=== PATIENT | female | born 1990 | race Caucasian/White ===

== ENCOUNTER 2017-05-17 19:41 | Outpatient (CLI) | payer BC ==
[~2017-05-17] VITALS: Ht 160 cm; Wt 90.7 kg
[~2017-05-17 19:41] MED LIST: ALBU8.5H IH; LAMOT150PT GT; VERA120C9 PO
[2017-05-17] MEDS ORDERED: DLR(*) 1000 ML BAG 1,000 ML IV PRN (19:48)
[2017-05-17 20:30] VITALS: BP 127/73; Ht 160 cm; Wt 90.7 kg
[2017-05-17] MEDS: LR(*) 1000 ML BAG 1,000 ML IV PRN ×2 (20:30→21:25)
[2017-05-17] MEDS ORDERED: ONDANSETRON 4 MG/2 ML VIAL IVP PRN (20:35)
[2017-05-17] MEDS ORDERED: APAP/HYDROCODONE 325/10 TAB PO ONE (21:10)
[2017-05-17 21:50] LABS: PLATELET COUNT, AUTOMATED 227 K/uL (150-450)
[2017-05-17] MEDS ORDERED: APAP/HYDROCODONE 325/5 TAB PO PRN (22:30)
== END 2017-05-18 00:13 | disposition home or self-care (01) ==
LOC: OB 19:41 → L&D 19:41 → OB 19:41 → UNDOADMOB 19:41 → UNDODISOB 05-18 00:13 → L&D 05-18 00:13 → EDSTATUS 05-18 10:38
PROVIDERS: ATTEND Student in an Organized Health Care Education/Training Program
DX: O26.892 Other specified pregnancy related conditions, second trimester (principal); Z3A.24 24 weeks gestation of pregnancy; R10.9 Unspecified abdominal pain
CPT/HCPCS: 36415; 59025; 81001; 85025; 87088; 99213; J2405; J7120; 82040; 82247; 82310; 82374; 82435; 82565; 82947; 84075; 84132; 84155; 84295; 84450; 84460; 84520

== ENCOUNTER 2017-05-21 12:12 | Outpatient (CLI) | payer BC ==
[~2017-05-21] VITALS: Ht 160 cm; Wt 95.3 kg
[2017-05-21 12:20] VITALS: BP 121/82; Ht 160 cm; Wt 95.3 kg
[2017-05-21 12:48] LABS: PLATELET COUNT, AUTOMATED 242 K/uL (150-450)
[2017-05-21] MEDS ORDERED: HYDROmorphone HCL 2 MG/ML SDV IVP ONE (13:05)
--- NOTE | 2017-05-21 13:05 | History & Physical ---
History of Present Illness Age of Patient: 27 : 1 Para or TPAL: 0 Estimated Gestational Age: 27 Chief Complaint r-sided abdominal History of Present Illness 27yo at 25 weeks, ALEXIS 09/04/17, presents with R-sided abdominal pain. Pain started 5 days ago, severe 11/12, was seen in ED, noted to have elevated WBC, 18. Pain is sharp, radiates to RLQ. No nausea/emesis, no other symptoms. Normal movement, denies contractions, denies PVB or LOF. Pt reports pain resolved when seen in ED, now intermittent and worsening today. Patient reports worse after eating in last two days. History Group B Strep Screen: Unknown Past Medical History: h/o nephrolithiasis Allergies: Coded Allergies: codeine (Verified Allergy, Intermediate, 11/24/16) Social History: no T/E/D Med Rec Home Meds Reported Medications Acetaminophen (TYLENOL) 325 Mg Tablet, 650 MG PO Q4-6H Y for PAIN, TAB 05/21/17 Vits W-Ca,Fe,Fa(<1MG) ( VITAMINS) 1 Each Tablet, 1 EACH PO DAILY, TAB 05/21/17 Discontinued Reported Medications Albuterol Sulfate 90 Mcg/Act (PROAIR HFA 90 MCG/ACT) 8.5 Gm Hfa.aer.ad, 1-2 PUFF IH 3-4XD, INHALER 11/24/16 Verapamil Hcl (VERAPAMIL ER) 120 Mg Cap24h.pel, 120 MG PO QDAY 11/24/16 Lamotrigine (LAMICTAL) 150 Mg Tablet, 150 MG GT QDAY 11/24/16 Review of Systems Constitutional: No Fever, No Weight Loss, No Weight Gain, No Chills, No Night Sweats, No Other Neurological: No Syncope, No Confusion, No Weakness, No Dizziness, No Slurred Speech, No Other Eyes: No Vision Change, No Loss of Vision, No Photophobia, No Other ENT: No Hearing Loss, No Sinus Congestion, No Sore Throat, No Ear Ache, No Tinnitus, No Other Cardiovascular: No Chest Pain, No Palpitations, No Orthostatic Hypotension, No Other Respiratory: No Shortness of Breath, No Cough, No Wheezing, No Other Gastrointestinal: Abdominal Pain (R-sided) Genitourinary: No Dysuria, No Hematuria, No Urinary Incontinence, No Other Musculoskeletal: No Pain, No Sprain, No Strain, No Impaired Mobility, No Other Psychiatric: No Depression, No Anxiety, No Other Exam General Exam Vital Signs Vital Signs Date Time Temp Pulse Resp B/P (MAP) Pulse Ox O2 Delivery O2 Flow Rate FiO2 05/21/17 12:20 99.3 94 18 121/82 (95) 96 Room Air afebrile VSS General Apperance: Alert/Awake/No Acute Distress Neuro: No Gross deficits Eyes: Normal Extraocular Movement & Vison Cardiovascular: Regular Rate and Rhythm Respiratory: No Respiratory Distress Abdomen: Gravid - Tender (no fundal tenderness), RUQ Non-Tender Extremities: No Cyanosis,Clubbing or Edema Integumentary: Skin Intact without Lesions or Rash Psychological: Alert & Oriented X3, Appropriate Mood & Affect Fetus Feeling Movement?: Yes Heart Tones: 140 Medical Decision Making Data Points Result Diagram: 05/21/17 1240 05/21/17 1240 UA negative for blood, nitrates Imaging Ultrasound/Imaging RUQ ultrasound unremarkable, no e/o cholecystitis or gall stones Renal Ultrasound negative for stones, mild R hydronephrosis (physiologic finding in ) Pre-Admit Course Medical Record Review: Yes VTE Prophylasis: Adult Deep Vein Thrombosis/Pulmonary: No Pharmacological Contraindicati: Surgical Contraindication Mechanical Contraindications: Pt at Low Risk for VTE Assessment and Plan Problems: (1) Abdominal pain affecting , antepartum Status: Acute Assessment & Plan: 27yo at 25 weeks with acute, intermittent R-sided pain. Initially radiating to groin, 5 days ago, now worse after eating. Mildly elevated WBC at visit to ED on Wednesday. UCx contaminated at that time. status reassuring, no E/O distress. Will repeat CBC, CMP, check renal ultrasound for stones as well as RUQ ultrasound given sx worse after eating. Will treat pain with 2mg dilaudid x 1. After several hours of monitoring pain significantly improved. All studies normal, with WBC significantly decreased from visit Wednesday. testing remained reassuring. Will allow discharge home with plans for f/u in our office early next week, revisit if pain returns at the level it did today. CHIKIS LUO MD May 21, 2017 13:05
[2017-05-21] MEDS ORDERED: LR(*) 1000 ML BAG 1,000 ML IV PRN (13:08)
[2017-05-21] MEDS ORDERED: DLR(*) 1000 ML BAG 1,000 ML IV SCH (13:08)
[2017-05-21] MEDS ORDERED: METOCLOPRAMIDE 10 MG/2 ML SDV IVP PRN (13:10)
--- NOTE | 2017-05-21 15:12 | RADIOLOGY IMAGING REPORT ---
FACILITY: [facility] - [place] PATIENT NAME: Constanza Bansal : 1990 MR: [id number] V: [id number] EXAM DATE: ORDERING PHYSICIAN: CHIKIS LUO TECHNOLOGIST: Location: [facility] - [place] Patient: Constanza Bansal : 1990 Visit/Account:[id number] Date of Sevice: 05/21/2017 EXAMINATION: Limited right upper quadrant ultrasound Additional Pertinent history: Right upper quadrant pain. Patient at 24 weeks and 6 days. COMPARISON STUDIES: None. FINDINGS: Gallbladder: Tiny bit of sludge/debris in the gallbladder without stones, wall thickening or perichol ecystic fluid. Negative ultrasound Duncan sign. Liver: negative Common duct: normal 2.6 mm. Pancreas: normal / visualized aspects normal / obscured Right kidney: Mild right hydronephrosis without cause identified. No other focal abnormality. Proximal IVC/Aorta: negative heart rate is 135 bpm. IMPRESSION: 1. Mild right hydronephrosis without cause identified. 2. The gallbladder shows minimal sludge/debris without other focal normality. Report Dictated By: Negro Chappell at 05/21/2017 3:03 PM Report E-Signed By: Negro Chappell at 05/21/2017 3:07 PM WSN:[id number]
--- NOTE | 2017-05-21 15:15 | RADIOLOGY IMAGING REPORT ---
FACILITY: [facility] PATIENT NAME: Constanza Bansal : 1990 MR: [id number] V: [id number] EXAM DATE: ORDERING PHYSICIAN: CHIKIS LUO TECHNOLOGIST: Location: [facility] - [place] Patient: Constanza Bansal : 1990 Visit/Account:[id number] Date of Sevice: 05/21/2017 Renal ultrasound Indication: Flank pain. Patient at 24 weeks and 6 days. Comparison: None available Findings: Right kidney measures 11.3 x 4.7 x 6.3 cm in cc, AP, and transverse dimensions respectively. Left kidney measures 10.8 x 5.3 x 5.2 cm in cc, AP, and transverse dimensions respectively. There is normal echogenicity of the bilateral kidneys. There is mild right hydronephrosis which is unresolved with voiding. There is no renal stones identif ied. Left kidney shows no hydronephrosis or stones. No discrete renal lesions. Blood flow both kidney s appears symmetric and normal. Bilateral ureteral jets were seen. Urinary bladder imaging was negative and there is minimal post-void residual of 13 mL. Visualized abdominal aorta and IVC are unremarkable. IMPRESSION: 1. Mild right hydronephrosis. This appears to be secondary to the as the right ureteral jet is present. No stones are identified. 2. Minimal postvoid residual in the urinary bladder. Report Dictated By: Negro Chappell at 05/21/2017 3:08 PM Report E-Signed By: Negro Chappell at 05/21/2017 3:11 PM WSN:[id number]
[2017-05-21] MEDS ORDERED: ACET-1966 PO (16:50)
[2017-05-21] MEDS ORDERED: PREN-127 PO (16:50)
--- NOTE | 2017-05-21 17:58 | OB/GYN Discharge Summary ---
Discharge Summary Reason for Hosp/Final Diag: (1) Abdominal pain affecting , antepartum Status: Acute Lates Vital Signs Vital Signs Date Time Temp Pulse Resp B/P (MAP) Pulse Ox O2 Delivery O2 Flow Rate FiO2 05/21/17 12:20 99.3 94 18 121/82 (95) 96 Room Air Weight (Pounds): 210 Result Diagram: 05/21/17 1240 05/21/17 1240 Condition: Improved Discharge: Home Home Meds Reported Medications Acetaminophen (TYLENOL) 325 Mg Tablet, 650 MG PO Q4-6H Y for PAIN, TAB 05/21/17 Vits W-Ca,Fe,Fa(<1MG) ( VITAMINS) 1 Each Tablet, 1 EACH PO DAILY, TAB 05/21/17 Discontinued Reported Medications Albuterol Sulfate 90 Mcg/Act (PROAIR HFA 90 MCG/ACT) 8.5 Gm Hfa.aer.ad, 1-2 PUFF IH 3-4XD, INHALER 11/24/16 Verapamil Hcl (VERAPAMIL ER) 120 Mg Cap24h.pel, 120 MG PO QDAY 11/24/16 Lamotrigine (LAMICTAL) 150 Mg Tablet, 150 MG GT QDAY 11/24/16 [facility] [phone] Follow up in: 3-4 days Discharge Diet: As Tolerates Discharge Activity: As Tolerates CHIKIS LUO MD May 21, 2017 17:58
== END 2017-05-21 18:15 | disposition home or self-care (01) ==
LOC: UNDOADMOB 12:12 → OB 12:12 → L&D 12:12 → OB 12:12 → L&D 18:15 → UNDODISOB 18:15 → EDSTATUS 05-24 10:48
PROVIDERS: ATTEND Obstetrics & Gynecology
DX: O26.892 Other specified pregnancy related conditions, second trimester (principal); Z3A.25 25 weeks gestation of pregnancy
CPT/HCPCS: 36415; 76705; 81001; 85025; 99213; J1170; J7120; 82040; 82247; 82310; 82374; 82435; 82565; 82947; 84075; 84132; 84155; 84295; 84450; 84460; 84520; G0378; G0379

== ENCOUNTER 2017-05-28 11:04 | Observation (INO) | payer BC ==
[~2017-05-28] VITALS: Ht 160 cm; Wt 95.3 kg
[~2017-05-28 11:04] MED LIST changes: +ACET-1966 PO; +PREN-127 PO
[2017-05-28] MEDS ORDERED: APAP/HYDROCODONE 325/5 TAB PO PRN ×2 (11:20→19:00)
[2017-05-28 11:30] VITALS: BP 125/72; Ht 160 cm; Wt 95.3 kg
[2017-05-28 11:38] LABS: PLATELET COUNT, AUTOMATED 223 K/uL (150-450)
--- NOTE | 2017-05-28 12:34 | RADIOLOGY IMAGING REPORT ---
FACILITY: [facility] - [place] PATIENT NAME: Constanza Bansal : 1990 MR: [id number] V: [id number] EXAM DATE: ORDERING PHYSICIAN: DAHIANA ALMANZA TECHNOLOGIST: Location: [facility] Patient: Constanza Bansal : 1990 Visit/Account:[id number] Date of Sevice: 05/28/2017 EXAMINATION: CT ABDOMEN AND PELVIS WITHOUT CONTRAST COMPARISON: None. HISTORY: 26 weeks . Right flank pain. PROCEDURE: Multiplanar noncontrast CT of the abdomen and pelvis. One of the following dose optimizati on techniques was utilized in the performance of this exam: Automated exposure control; adjustment of the mA and/or kV according to the patient's size; or use of an iterative reconstruction technique. Specific details can be referenced in the facility's radiology CT exam operational policy. FINDINGS: Evaluation of the solid and viscus parenchymal organs and vascular structures is limited wi thout the benefit of IV contrast. Visualized thorax: Negative. Liver: Noncontrast imaging of the visualized liver is within normal limits. Gallbladder and biliary system: Negative Spleen: Spleen size is normal. Pancreas: Noncontrast imaging of the pancreas is within normal limits. Adrenal glands: Negative. Kidneys and bladder: Mild right-sided hydronephrosis and parenchymal edema due to a 3 mm stone in the distal ureter approximately 3 cm from the ureterovesical junction. No other radiopaque urolithiasis is identified. Vessels: Within normal limits. Bowel and mesentery: Stomach is within normal limits. No small bowel obstruction. Appendix is unrem arkable. Small amount of stool within the colon. No focal region of bowel or mesenteric inflammatio n. Pelvic organs: Intrauterine gestation in cephalic lie. Fundal placenta. Lymph nodes: No adenopathy. Free air/free fluid: None. Abdominal wall and osseous structures: Negative. IMPRESSION: 1. Mild right-sided obstructive uropathy due to a 3 mm stone in the distal ureter approximately 3 cm from the ureterovesical junction. 2. Intrauterine gestation. Report Dictated By: Josh Clay MD at 05/28/2017 12:22 PM Report E-Signed By: Josh Clay MD at 05/28/2017 12:30 PM WSN:[id number]
[2017-05-28] MEDS ORDERED: LR(*) 1000 ML BAG 1,000 ML IV SCH ×2 (12:35→20:00)
[2017-05-28] MEDS ORDERED: LIDOCAINE/SOD BICARB 8.4% SYR ONE (12:44)
[2017-05-28] MEDS: MORPHINE 2 MG/ML SYR IVP PRN ×3 (12:59→16:16)
--- NOTE | 2017-05-28 15:02 | History & Physical ---
History of Present Illness Age of Patient: 27 : 2 Para or TPAL: 0010 EDC per LMP: Sep 04, 2017 EDC per U/S: September 02, 2017 Estimated Gestational Age: 25.6 Chief Complaint Abdominal Pain History of Present Illness Pt is a 27 y/o @ 25-6/7 weeks gestation who present to L&D with a chief complaint of abdominal pain. Pt reports that she has been having pain now for 2 -3 weeks. Pt's pain will start and be constant for many hours with little to zero relief. Pt reports that last week the pain happened and lasted for multiple days. Reports getting an U/S that was negative and shortly thereafter the pain was gone. Pt reports that the pain started again this morning and has been constant in general. Pt reports pain 7-10. Did take tramadol with no relief of symptoms. Reports good movement. No vaginal bleeding. History Patient's Blood Type: O Positive Rubella Status: Immune Group B Strep Screen: Unknown Past Medical History: Non contributory Allergies: Coded Allergies: codeine (Verified Allergy, Intermediate, 11/24/16) Social History: no T/E/D Med Rec Home Meds Reported Medications Acetaminophen (TYLENOL) 325 Mg Tablet, 650 MG PO Q4-6H Y for PAIN, TAB 05/21/17 Vits W-Ca,Fe,Fa(<1MG) ( VITAMINS) 1 Each Tablet, 1 EACH PO DAILY, TAB 05/21/17 Discontinued Reported Medications Albuterol Sulfate 90 Mcg/Act (PROAIR HFA 90 MCG/ACT) 8.5 Gm Hfa.aer.ad, 1-2 PUFF IH 3-4XD, INHALER 11/24/16 Verapamil Hcl (VERAPAMIL ER) 120 Mg Cap24h.pel, 120 MG PO QDAY 11/24/16 Lamotrigine (LAMICTAL) 150 Mg Tablet, 150 MG GT QDAY 11/24/16 Review of Systems All Systems Reviewed/Normal: Yes, Except as Noted Constitutional: No Fever, No Weight Loss, No Weight Gain, No Chills, No Night Sweats, No Other Neurological: No Syncope, No Confusion, No Weakness, No Dizziness, No Slurred Speech, No Other Eyes: No Vision Change, No Loss of Vision, No Photophobia, No Other ENT: No Hearing Loss, No Sinus Congestion, No Sore Throat, No Ear Ache, No Tinnitus, No Other Cardiovascular: No Chest Pain, No Palpitations, No Orthostatic Hypotension, No Other Respiratory: No Shortness of Breath, No Cough, No Wheezing, No Other Gastrointestinal: Abdominal Pain Genitourinary: No Dysuria, No Hematuria, No Urinary Incontinence, No Other Musculoskeletal: No Pain, No Sprain, No Strain, No Impaired Mobility, No Other Psychiatric: No Depression, No Anxiety, No Other Exam General Exam General Apperance: Alert/Awake/No Acute Distress Eyes: Normal Extraocular Movement & Vison, PERRLA ENT: Normal Cardiovascular: Regular Rate and Rhythm Respiratory: No Respiratory Distress, Clear to Auscultation Abdomen: Soft, Non-Tender, Non-Distended, Gravid - Non-Tender Integumentary: No Skin Intact without Lesions or Rash, No Jaundice, No Pallor, No Cyanosis, No Incision, No Laceration, No Other Psychological: Alert & Oriented X3, Appropriate Mood & Affect Medical Decision Making Data Points Result Diagram: 05/28/17 1132 Pre-Admit Course Medical Record Review: Yes VTE Prophylasis: Adult Deep Vein Thrombosis/Pulmonary: No 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 Dr. Henry consulted and will be in to see the patient. DAHIANA ALMANZA DO May 28, 2017 15:02
[2017-05-28] MEDS ORDERED: NORMOSOL R SOLN(*) 1000 ML BAG 1,000 ML IV PRN (15:16)
[2017-05-28] MEDS ORDERED: fentaNYL CITR 100 MCG/2 ML AMP ONE ×2 (16:01→17:08)
[2017-05-28] MEDS ORDERED: LIDOCAINE MPF 1% 5 ML VIAL ONE ×2 (16:02→16:41)
[2017-05-28] MEDS ORDERED: PROPOFOL EMUL(*) 10MG/ML 20 ML 80 ML ONE (16:02)
[2017-05-28] MEDS ORDERED: ONDANSETRON 4 MG/2 ML VIAL ONE (16:02)
[2017-05-28] MEDS ORDERED: DEXAMETHASONE SOD 4 MG/ML VIAL ONE (16:05)
[2017-05-28] MEDS ORDERED: cefTRIAXone(*) 1 GM VIAL 1 GM in NS(*) 0.9% 100 ML ADDVANT BAG 100 ML IVPB ONE (16:30)
[2017-05-28] MEDS ORDERED: TRAM-420 PO (16:53)
[2017-05-28] MEDS ORDERED: IOPAMIDOL-200 50 ML VIAL IS ONE (16:55)
[2017-05-28] MEDS ORDERED: KETOROLAC 15 MG/ML VIAL ONE (18:00)
--- NOTE | 2017-05-28 18:21 | CONSULTATION ---
EVENT DATE: May 28, 2017 ATTENDING PHYSICIAN Felipe Herndon DO CONSULTING PHYSICIAN Ernesto Henry MD REASON FOR CONSULTATION Right-sided pain. HISTORY OF PRESENT ILLNESS This is a 27-year-old white female, 26 weeks , who I was asked to see by Dr. Felipe Herndon, OB-CATALYST OPERATOR physician, caring for the patient today. Patient has a history of right-sided pain for a little over a week. CT IVP today shows a right distal ureteral stone. Patient requested consultation as referenced by Dr. Herndon. Patient was interviewed in the early p.m. today, and is agreeable to further evaluation and therapy. DIAGNOSIS Right ureterolithiasis with associated severe right ureteral colic, nausea and vomiting. RECOMMENDATIONS 1. Cystourethroscopy. 2. Manipulation of right ureteral stone. 3. Possible right ureteral stent placement. Thank you for letting me share in the care of your patient. [place]
[2017-05-28] MEDS ORDERED: LR(*) 1000 ML BAG 1,000 ML IV PRN (19:00)
[2017-05-28] MEDS ORDERED: FAMOTIDINE 20 MG TAB PO PRN (19:00)
[2017-05-28] MEDS ORDERED: ONDANSETRON 4 MG/2 ML VIAL IVP PRN (19:00)
[2017-05-28 19:30] VITALS: BP 120/79
--- NOTE | 2017-05-28 20:48 | OB/GYN Progress Note ---
OB Subjective Progress Notes Subjective Reports significant improvement in pain post operatively. Denies any vaginal bleeding. + movement. GI: NEG Nausea, NEG Vomiting, NEG Flatus, NEG Bowel Movement : Voiding Well Pain: Mild, Tolerating PO Pain Meds Neurological: No Headache, No Other Eyes: No Visual Disturbances OB Objective Physical Exam Vital Signs Date Time Temp Pulse Resp B/P (MAP) Pulse Ox O2 Delivery O2 Flow Rate FiO2 05/28/17 19:30 98.2 93 20 120/79 (93) 95 Room Air Intake and Output 05/29/17 07:00 Intake Total 1526 ml Output Total 275 ml Balance 1251 ml Intake Oral 100 ml IV Total 1426 ml Output Urine Total 275 ml Emesis 0 ml # Voids 2 # Bowel Movements 0 General Appearance: Alert/Awake/No Acute Distress Eyes: Normal Extraocular Movement & Vison, PERRLA ENT: Normal Respiratory: No Respiratory Distress, Clear to Auscultation Abdomen: Soft, Non-Tender, Non-Distended, Non-Tender : Normal Musculoskeletal: No Weakness/Pain Integumentary: No Skin Intact without Lesions or Rash, No Jaundice, No Pallor, No Cyanosis, No Incision, No Laceration, No Other Psychological: Alert & Oriented X3, Appropriate Mood & Affect Result Diagram: 05/28/17 1132 Assessment and Plan BUYER 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 Henry. Pt reports significant improvement in pain. Will monitor overnight. NST q shift. Discharge home tomorrow with pain medications. Follow up as needed with Dr. Henry. DAHIANA ALMANZA DO May 28, 2017 20:48
[2017-05-28] MEDS: FAMOTIDINE 20 MG TAB PO SCH (21:00)
[2017-05-28] MEDS ORDERED: ZOLPIDEM TARTRATE 5 MG TAB PO PRN (21:00)
[2017-05-28 21:20] VITALS: BP 112/75
[2017-05-28 23:15] VITALS: BP 114/70
[2017-05-29 03:13] VITALS: BP 101/68
[2017-05-29] MEDS ORDERED: LOR5/325 PO (06:29)
--- NOTE | 2017-05-29 06:36 | OB/GYN Discharge Summary ---
Discharge Summary Reason for Hosp/Final Diag: (1) 25 weeks gestation of (2) Abdominal pain affecting Hospital Course & Plan: Pt presented for abdominal pain and was noted to have significant abdominal pain with initial presentation. Pt has had work up for a possible kidney stone. Underwent CT of abdomen and pelvis with 3 mm in the right Ureteral Vesical Junction. Dr. Henry was consulted and took the patient to the OR for stone retrieval/possible stenting. Underwent procedure with out any complications (see procedure note for details of procedure). Pt remained in the hospital for 1 day post operatively for pain control. Pain was controlled with Smyer 5. Pt discharged home with follow up with Dr. Henry and WC. Lates Vital Signs Vital Signs Date Time Temp Pulse Resp B/P (MAP) Pulse Ox O2 Delivery O2 Flow Rate FiO2 05/29/17 03:13 97.0 75 16 101/68 (79) 97 Nasal Cannula 0.5 Weight (Pounds): 210 Result Diagram: 05/28/17 1132 Condition: Improved Discharge: Home Home Meds Active Scripts Hydrocodone Bit/Acetaminophen (HYDROCODON-ACETAMINOPHEN 5-325) 1 Each Tablet, 1- 2 EACH PO Q4H Y for PAIN, #20 TAB 0 Refills Prov:DAHIANA ALMANZA DO 05/29/17 Reported Medications Tramadol Hcl (TRAMADOL HCL) 50 Mg Tablet, MG PO Q4-6H Y for PAIN, TAB 05/28/17 Acetaminophen (TYLENOL) 325 Mg Tablet, 650 MG PO Q4-6H Y for PAIN, TAB 05/21/17 Vits W-Ca,Fe,Fa(<1MG) ( VITAMINS) 1 Each Tablet, 1 EACH PO DAILY, TAB 05/21/17 [facility] [phone] Follow up in: 2 wks PO Discharge Diet: As Tolerates, Resume Prior Admit Diet, Increase Fluid Intake Discharge Activity: As Tolerates DAHIANA ALMANZA DO May 29, 2017 06:36
--- NOTE | 2017-05-29 06:51 | OB/GYN Progress Note ---
OB Subjective Progress Notes Subjective Doing much better. Reports some discomfort overnight but easily controlled with PO pain medications. Still using screen for urine with multiple crystals noted. Pt reports good movement. No vaginal bleeding. No contractions. GI: NEG Nausea, NEG Vomiting, NEG Flatus, NEG Bowel Movement : Voiding Well Pain: Mild Neurological: No Headache, No Other Eyes: No Visual Disturbances OB Objective Physical Exam Vital Signs Date Time Temp Pulse Resp B/P (MAP) Pulse Ox O2 Delivery O2 Flow Rate FiO2 05/29/17 03:13 97.0 75 16 101/68 (79) 97 Nasal Cannula 0.5 General Appearance: Alert/Awake/No Acute Distress Eyes: Normal Extraocular Movement & Vison, PERRLA ENT: Normal Neck: No Masses Cardiovascular: Normal Rhythm & Peripheral Pulses, Regular Rate and Rhythm Respiratory: No Respiratory Distress, Clear to Auscultation Abdomen: Soft, Non-Tender, Non-Distended, Non-Tender : Normal Musculoskeletal: No Weakness/Pain Integumentary: No Skin Intact without Lesions or Rash, No Jaundice, No Pallor, No Cyanosis, No Incision, No Laceration, No Other Psychological: Alert & Oriented X3, Appropriate Mood & Affect Result Diagram: 05/28/17 1132 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 Will plan for discharge home today. Follow up with Dr. Henry and W. DAHIANA ALMANZA DO May 29, 2017 06:51
[2017-05-29 08:25] VITALS: BP 113/67
[2017-05-29] MEDS: FAMOTIDINE 20 MG TAB PO SCH (09:00)
--- NOTE | 2017-05-29 13:58 | OPERATIVE REPORT 1 ---
EVENT DATE: May 28, 2017 SURGEON: Ernesto Henry MD ANESTHESIOLOGIST: Bartolo Leon MD ANESTHESIA: General anesthetic. PREOPERATIVE DIAGNOSES 1. Right ureterolithiasis with associated severe right ureterorenal colic. 2. Nausea and vomiting. POSTOPERATIVE DIAGNOSES 1. Right ureterolithiasis with associated severe right ureterorenal colic. 2. Nausea and vomiting. PROCEDURES PERFORMED 1. Cystourethroscopy. 2. Manipulation of right ureteral stone. 3. Catheterization of right ureter. DESCRIPTION OF PROCEDURE Under general anesthetic, the patient was prepped and draped in the standard lithotomy position. The 21 panendoscope was admitted through the urethra into the bladder. No stones were visible in the bladder. The helical extractor was passed up the right collecting system well beyond the 2 to 3 cm estimated as to location of the stone in the ureter. On the first passage with the basket open, the stone was engaged and delivered without any difficulty. There was minimal bleeding following the extraction. The stone was retrieved times two. It fragmented in one smaller particle off of the big stone. The 10 cone-tipped catheter passed easily up and down the right ureter. The bladder was drained. The scope was withdrawn. The patient tolerated the procedure satisfactorily and returned to the recovery room in satisfactory condition. This is a 26-year-old white female, 1, at approximately 26 weeks of . Options were discussed with the patient pretreatment. The patient has been having pain, ureterorenal colic, and intermittent nausea and vomiting for over a week. She was seen in the Emergency Room approximately a week ago. Those stones have been retrieved. CT IVP today showed a right distal ureteral stone. I was contacted by Dr. Herndon, PRE K SPECIAL EDUCATION TEACHER physician, and the patient requested consultation and treatment. That has been accomplished. See operative note for details. The patient will be ready for discharge home hopefully in the a.m. if all is going well. She is to force fluids, 12 glasses of water per day. Activities are as tolerated. She is to strain all of her urine. She is sent home with strainers. She will be discharged on a low-dose antibiotic, analgesic, and Pepcid therapy. She is to follow up with her local physician and urologist in [place]. We will check with the patient as to whether she wants to take the stone with her for possible analysis at her home site. MANHATTAN PSYCHIATRIC CENTERAngelique
[2017-05-29] MEDS ORDERED: FAMOTIDINE 20 MG TAB PO ONE (15:30)
== END 2017-05-29 06:29 | disposition home or self-care (01) ==
LOC: OB 11:04
PROVIDERS: ADMIT Student in an Organized Health Care Education/Training Program; ATTEND Student in an Organized Health Care Education/Training Program
DX: N20.2 Calculus of kidney with calculus of ureter (principal); R11.2 Nausea with vomiting, unspecified
CPT/HCPCS: 36415; 52320; 52332; 74176; 81001; 82365; 85025; 87088; 88300; C1758; G0378; G0379; J0696; J1100; J1885; J2001; J2270; J2405; J2704; J3010; J7050; J7120; Q9966

== ENCOUNTER 2017-08-31 23:41 | Inpatient (IN) | payer BC ==
[~2017-08-31] VITALS: Ht 160 cm; Wt 102.1 kg
[~2017-08-31 23:41] MED LIST changes: +LOR5/325 PO; +TRAM-420 PO
[2017-08-31] MEDS ORDERED: FLUSH 10 ML SYR IVP PRN (23:45)
[2017-09-01 01:59] LABS: PLATELET COUNT, AUTOMATED 144 K/uL (150-450)
[2017-09-01 07:00] VITALS: BP 143/87; Ht 160 cm; Wt 102.1 kg
[2017-09-01] MEDS ORDERED: CALC-521 PO (08:39)
[2017-09-01] MEDS ORDERED: FLUSH 10 ML SYR IVP PRN (10:05)
[2017-09-01] MEDS ORDERED: fentaNYL CITR 100 MCG/2 ML AMP IVP PRN (10:05)
[2017-09-01] MEDS ORDERED: METOCLOPRAMIDE 10 MG/2 ML SDV IVP PRN (10:05)
[2017-09-01] MEDS ORDERED: OXYTOCIN 30 UNIT/D5LR 500 ML 500 ML IV PRN (10:05)
[2017-09-01] MEDS ORDERED: FAMOTIDINE(*) 20MG/50ML PREMIX 50 ML IVPB PRN ×2 (10:05→21:25)
[2017-09-01] MEDS ORDERED: LIDOCAINE/SOD BICARB 8.4% SYR SC PRN (10:05)
[2017-09-01] MEDS ORDERED: LIDOCAINE 1% LOCAL 300 MG/30ML INJ PRN (10:05)
[2017-09-01] MEDS ORDERED: TERBUTALINE SULF 1 MG/ML VIAL SUBQ PRN (10:05)
[2017-09-01] MEDS ORDERED: FENTANYL/ROPIVACAINE 100 ML BAG EPI PRN (10:15)
[2017-09-01] MEDS ORDERED: LIDO/EPI 2% MPF 1:200,000 20ML EPI PRN (10:15)
[2017-09-01] MEDS ORDERED: LIDOCAINE/PF 2% 200MG/10ML AMP 200 MG/10 ML AMPUL EPI PRN (10:15)
[2017-09-01] MEDS ORDERED: BUPIVACAINE 0.25% MPF INJ EPI PRN (10:15)
[2017-09-01] MEDS ORDERED: fentaNYL CITR 100 MCG/2 ML AMP IT PRN (10:15)
[2017-09-01] MEDS ORDERED: ePHEDrine 25 MG/5 ML DISP.SYR IVP PRN (10:15)
[2017-09-01] MEDS ORDERED: BUPIVACAINE 0.5% INJ 30ML VIAL EPI PRN (10:15)
[2017-09-01] MEDS ORDERED: PENICILLIN G 5 MILLUN/100 ML 100 ML IVPB ONE (11:00)
[2017-09-01] MEDS: LR(*) 1000 ML BAG 1,000 ML IV PRN ×3 (11:16→20:57)
[2017-09-01] MEDS ORDERED: EPIDURAL KEYS XX PRN (12:00)
[2017-09-01] MEDS ORDERED: cefOXitin SOD 2 GM VIAL 2 GM in NS(*) 0.9% 100 ML BAG 100 ML IVPB PRN (13:10)
--- NOTE | 2017-09-01 13:37 | History & Physical ---
History of Present Illness Age of Patient: 27 : 2 Para or TPAL: 0 EDC per LMP: Sep 04, 2017 Estimated Gestational Age: 39.4 Chief Complaint Possible labor History of Present Illness Presents with contractions since last night regular every 5 minutes and not improving. Was 3 cm in the office. uncomplicated. GBS positive. Past Medical, Surgical, Family and Obstetric Histories reviewed. Please see ACOG chart. History Allergies: Coded Allergies: codeine (Verified Allergy, Intermediate, 11/24/16) Social History: no T/E/D Med Rec Home Meds Reported Medications Calcium Carbonate (TUMS) 300 Mg Tab.chew, 300 MG PO DAILY Y for HEARTBURN, TAB.CHEW 09/01/17 Acetaminophen (TYLENOL) 325 Mg Tablet, 650 MG PO Q4-6H Y for PAIN, TAB 05/21/17 Vits W-Ca,Fe,Fa(<1MG) ( VITAMINS) 1 Each Tablet, 1 EACH PO DAILY, TAB 05/21/17 Discontinued Reported Medications Tramadol Hcl (TRAMADOL HCL) 50 Mg Tablet, MG PO Q4-6H Y for PAIN, TAB 05/28/17 Discontinued Scripts Hydrocodone Bit/Acetaminophen (HYDROCODON-ACETAMINOPHEN 5-325) 1 Each Tablet, 1- 2 EACH PO Q4H Y for PAIN, #20 TAB 0 Refills Prov:DAHIANA ALMANZA DO 05/29/17 Review of Systems All Systems Reviewed/Normal: Yes, Except as Noted Other as per HPI Exam General Exam Vital Signs Vital Signs Date Time Temp Pulse Resp B/P (MAP) Pulse Ox O2 Delivery O2 Flow Rate FiO2 09/01/17 07:00 98.1 94 18 143/87 (105) 95 Room Air General Apperance: Alert/Awake/No Acute Distress Neuro: No Gross deficits ENT: Normal Cardiovascular: Regular Rate and Rhythm Respiratory: No Respiratory Distress Abdomen: Soft, Non-Tender, Non-Distended, Gravid - Non-Tender Integumentary: Skin Intact without Lesions or Rash Psychological: Alert & Oriented X3, Appropriate Mood & Affect Vaginal Discharge/Fluid?: Bloody Show Cervical Dialation: 4 Cervical Effacement (%): 80 Cervical Consistency: Soft Cervical Position: Anterior Station: -2 Presentation: Vertex Fetus Heart Tone Variabilty: Moderate FHT Accelerations: 15X15 FHT Category: I Medical Decision Making Data Points Result Diagram: 09/01/17 01409/01/17 014 VTE Prophylasis: Adult Deep Vein Thrombosis/Pulmonary: No Pharmacological Contraindicati: Pt at Low Risk for VTE Mechanical Contraindications: Pt at Low Risk for VTE 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 She desires regional anesthesia. Expecting . EDGARDO SKINNER MD September 01, 2017 13:37
[2017-09-01] MEDS ORDERED: ACETA/BUTAL/CAFF 325/50/40 TAB PO PRN (13:45)
[2017-09-01] MEDS: PENICILLIN G 2.5 MILLUN/100 ML 100 ML IVPB SCH ×3 (15:25→23:01)
[2017-09-01] MEDS: DLR(*) 1000 ML BAG 1,000 ML IV PRN (15:40)
[2017-09-01] MEDS ORDERED: CALCIUM CARBONATE 500 MG CHEW PO PRN (21:20)
[2017-09-02] MEDS ORDERED: MEASLES,MUMP,RUBELLA VAC 0.5ML SC ONE (02:05)
[2017-09-02] MEDS ORDERED: HYDROmorphone HCL 2 MG TAB PO PRN (02:05)
[2017-09-02] MEDS ORDERED: LANOLIN OINT 7 GM TUBE TP PRN (02:05)
[2017-09-02] MEDS ORDERED: HYDROCORTISONE 2.5% CR 30GM TB PR PRN (02:05)
[2017-09-02] MEDS ORDERED: INFLUENZA VIRUS VAC 0.5 ML SYR IM ONLY ONE (02:05)
[2017-09-02] MEDS ORDERED: ACETAMINOPHEN 325 MG TAB PO PRN (02:05)
[2017-09-02] MEDS ORDERED: DIPHTH/TETANUS/ACEL. PERTUSSIS IM ONE (02:05)
[2017-09-02] MEDS ORDERED: MAGNESIUM HYDROXIDE* 30ML UDCP PO PRN (02:05)
--- NOTE | 2017-09-02 02:18 | OB Delivery Note ---
Delivery Note Vaginal Delivery Type: Spont. Vaginal Delivery Delivery Date: September 02, 2017 Delivery Time: 01:46 Estimated Gestational Age(wks): 39 Delivery Anesthesia: Epidural Apgars: 1 Minute (8), 5 Minute (9) Repair Needed: Laceration, Vaginal, 1st Degree Estimated Blood Loss: 300 Notes: Admitted with contractions and early labor. Augmentation with Pitocin and epidural placed. Labor dystocia noted around 6-7 cm with internal pressure monitor placed. Adequate labor MVUs noted although Pitocin adjusted down for more effective contraction frequency. Progress resumed and complete at 2249. Direct scalp electrode placed by nursing due to decelerations noted. Allowed to labor down. Pushing effective. Brought baby to position. Ritkin maneuver performed to stabilize the perineum. Pt became ill and vomited and baby delivered in BETI position over 1st degree laceration. Nuchal cord x 1 delivered through. Placenta delivered spontaneous and intact. Laceration repaired with 2-0 chromic without complication. Production Supv in Attendence: No Copies to: EDGARDO SKINNER MD, TRAVIS MD September 02, 2017 02:18
[2017-09-02] MEDS: DLR(*) 1000 ML BAG 1,000 ML IV PRN (02:45)
[2017-09-02] MEDS: PENICILLIN G 2.5 MILLUN/100 ML 100 ML IVPB SCH (02:49)
[2017-09-02] MEDS: GLYCERIN/WITCH HAZEL LEAF 1 PK TOP PRN (04:01)
[2017-09-02] MEDS: BENZOCAINE 20% 60 ML BTL TP PRN (04:01)
[2017-09-02 05:25] VITALS: BP 100/49
[2017-09-02 05:40] VITALS: BP 104/55
[2017-09-02] MEDS ORDERED: PENICILLIN G 2.5 MILLUN/100 ML 100 ML IVPB SCH (07:00)
--- NOTE | 2017-09-02 07:34 | Procedure Note ---
Anesthetic Placement Note Anesthesia Plan: LEB Permit for Anesthesia Signed: Yes Anesthesia Technique: Patient Sitting Anesthesia Prep: Betadine Interspace: L 3-4 Local Anesthetic: 1% Lidocaine, 25 Gauge Needle Amount Local - cc's: 3 Anesthesia Needle: 17g Touhy/Schliff Anesthesia Attempts: 1 Loss of Resistance: Normal Saline Depth of JAMIE (cm): 6 Cerebral Spinal Fluid: No Catheter Insertion (cm): 6 Catheter Type: Joe - Spring Wound Epidural Dressing: Tegaderm, Tape, Adhesive Duncan Anesthesia Tray: Lot Number ([id number]), Expiration Date (2018-11-02), Reference Number ([id number]) Anesthesia Medications: Epidural Test Dose: 1.5 Lido/Epi (1:200,000), Dose - mL (3), Time (1207), Negative (no signs IT or IV injection.) Epidural Loading Dose: 0.2% Ropivicaine, With Fentanyl 2mcg/ml, Dose - ml (15) , Time (1215), Other (In 5ml increments) Epidural Infusion: 0.2% Ropivicaine, With Fentanyl 2mcg/ml, Start Time: (1242) Epidural Pump Setting: Bolus Dose - mL (4), Lockout - Minutes (15), Maximum per Hour - mL (24) Complications: None Comment: Block slow to set up after bolus dosing, now working fine with minimal motor block R=L, approximate T-10 sensory level. 2019 Pt C/O block more pronounced on left side, feeling pain with contractions on right side. Epidural catheter pulled back 1.5 cm, bolus dosed with 0.25% marcaine 5ml x2 and fentanyl 50mcg, new infusion bag hung, infusion resumed. 2199 Pt C/O pain high abdomen with contractions. Bolus with 10ml 0.25% marcaine and fentanyl 50mcg. Infusion increased to 12ml/hour. 0 doing much better, motor block moderate R=L. LILIANA CARUSO CRNA September 01, 2017 13:01
--- NOTE | 2017-09-02 07:36 | Anesthesia OB Pre-Anes Eval ---
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) Hx Anesthesia Reactions: No Hx Family Anesthesia Reaction: No Past Complications: obesity Home Meds Reported Medications Calcium Carbonate (TUMS) 300 Mg Tab.chew, 300 MG PO DAILY Y for HEARTBURN, TAB.CHEW 09/01/17 Acetaminophen (TYLENOL) 325 Mg Tablet, 650 MG PO Q4-6H Y for PAIN, TAB 05/21/17 Vits W-Ca,Fe,Fa(<1MG) ( VITAMINS) 1 Each Tablet, 1 EACH PO DAILY, TAB 05/21/17 Discontinued Reported Medications Tramadol Hcl (TRAMADOL HCL) 50 Mg Tablet, MG PO Q4-6H Y for PAIN, TAB 05/28/17 Discontinued Scripts Hydrocodone Bit/Acetaminophen (HYDROCODON-ACETAMINOPHEN 5-325) 1 Each Tablet, 1- 2 EACH PO Q4H Y for PAIN, #20 TAB 0 Refills Prov:DAHIANA ALMANZA DO 05/29/17 Allergies: Coded Allergies: codeine (Verified Allergy, Intermediate, 11/24/16) Anesthesia OB ROS Pulmonary: asthma Airway Class: l GI ROS: clear liquids, ice chips Last Solids Date: September 01, 2017 Last Solids Time: 08:00 ASA Classification: 2 Assessment and Plan Anesthesia Plan: LEB Anesthesia Stop Day: September 02, 2017 Anesthesia Stop Time: 02:00 Epidural Catheter Removal: Yes, Removed by: (RN (see nurse notes).) LILIANA CARUSO BREAKFAST BAR ATTENDANT September 01, 2017 12:36
[2017-09-02 08:00] VITALS: BP 113/73
--- NOTE | 2017-09-02 08:20 | OB/GYN Progress Note ---
OB Subjective Progress Notes Subjective ambulating and voiding now. Had slight urinary retension early this am and straight cathed 550cc. Has been up to spontaneously void already since. GI: NEG Nausea Pain: Mild OB Objective Physical Exam Vital Signs Date Time Temp Pulse Resp B/P (MAP) Pulse Ox O2 Delivery O2 Flow Rate FiO2 09/02/17 05:40 18 104/55 (71) 09/02/17 05:25 97.6 90 09/01/17 07:00 95 Room Air General Appearance: Alert/Awake/No Acute Distress Neurological: No Gross deficits Cardiovascular: Normal Rhythm & Peripheral Pulses, Regular Rate and Rhythm Respiratory: No Respiratory Distress, Clear to Auscultation Abdomen: Soft, Non-Tender, Non-Distended, Fundus Firm, Non-Tender Integumentary: Skin Intact without Lesions or Rash Psychological: Alert & Oriented X3, Appropriate Mood & Affect Result Diagram: 09/01/17 0146 09/01/17 0146 Assessment and Plan 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
[2017-09-02] MEDS: DOCUSATE CALCIUM 240 MG CAP PO SCH ×2 (09:13→21:06)
[2017-09-02] MEDS: IBUPROFEN 800 MG TAB PO SCH ×2 (09:13→17:19)
[2017-09-02 14:35] VITALS: BP 114/75
--- NOTE | 2017-09-02 19:39 | Anesthesia Post Eval Note ---
Anesthesia Post Eval Note Stable, afebrile. Pt able to participate in Eval: Yes Cardiovascular Status: Satisfactory Respiratory Status: Satisfactory Pain Managment: Satisfactory PO Nausea/Vomiting: Satisfactory Temperature Management: Satisfactory Mental Status: Satisfactory, Alert, Oriented X3 Post-Op Hydration Status: Satisfactory, Tolerating PO Well, Voiding w/o Difficulty Anesthesia Type: LEB Anesthesia Tolerance: Ambulatory without symptoms PDPH, no apparent complications. LILIANA CARUSO PENSION ADVISER September 02, 2017 19:39
[2017-09-02 20:20] VITALS: BP 98/55
[2017-09-02 23:30] VITALS: BP 100/57
[2017-09-03] MEDS: IBUPROFEN 800 MG TAB PO SCH ×2 (01:48→08:49)
[2017-09-03 03:30] VITALS: BP 102/73
[2017-09-03 08:12] VITALS: BP 119/73
[2017-09-03] MEDS: DOCUSATE CALCIUM 240 MG CAP PO SCH (08:49)
--- NOTE | 2017-09-03 09:36 | OB/GYN Progress Note ---
OB Subjective Progress Notes Subjective Doing well. Pain controlled and ambulating well. Voiding without difficulty. Normal lochia. Anemic but not symptomatic. GI: NEG Nausea : Voiding Well Pain: Mild OB Objective Physical Exam Vital Signs Date Time Temp Pulse Resp B/P (MAP) Pulse Ox O2 Delivery O2 Flow Rate FiO2 09/03/17 03:30 97.1 92 18 102/73 (83) 09/01/17 07:00 95 Room Air Intake and Output 09/04/17 07:00 Intake Total 0 ml Balance 0 ml Intake Oral 0 ml General Appearance: Alert/Awake/No Acute Distress Neurological: No Gross deficits Cardiovascular: Normal Rhythm & Peripheral Pulses, Regular Rate and Rhythm Respiratory: No Respiratory Distress, Clear to Auscultation Abdomen: Soft, Non-Tender, Non-Distended, Fundus Firm, Non-Tender Integumentary: Skin Intact without Lesions or Rash Psychological: Alert & Oriented X3, Appropriate Mood & Affect Result Diagram: 09/03/17 0628 09/01/17 0146 Assessment and Plan 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 Home today. Call if issues. Continue vitamins. See me again at 6 weeks. EDGARDO SKINNER MD Sep 03, 2017 09:36
[2017-09-03] MEDS ORDERED: IBUP800T37 PO (09:38)
--- NOTE | 2017-09-03 09:39 | OB/GYN Discharge Summary ---
Discharge Summary Reason for Hosp/Final Diag: (1) 39 weeks gestation of (2) Normal labor Hospital Course & Plan: s/p (3) care and examination immediately after delivery [place] Vital Signs Vital Signs Date Time Temp Pulse Resp B/P (MAP) Pulse Ox O2 Delivery O2 Flow Rate FiO2 09/03/17 03:30 97.1 92 18 102/73 (83) 09/01/17 07:00 95 Room Air Weight (Pounds): 225 Result Diagram: 09/03/17 0628 09/01/17 0146 Condition: Improved Discharge: Home, Self Prison Meds Reported Medications Calcium Carbonate (TUMS) 300 Mg Tab.chew, 300 MG PO DAILY Y for HEARTBURN, TAB.CHEW 09/01/17 Acetaminophen (TYLENOL) 325 Mg Tablet, 650 MG PO Q4-6H Y for PAIN, TAB 05/21/17 Vits W-Ca,Fe,Fa(<1MG) ( VITAMINS) 1 Each Tablet, 1 EACH PO DAILY, TAB 05/21/17 Discontinued Reported Medications Tramadol Hcl (TRAMADOL HCL) 50 Mg Tablet, MG PO Q4-6H Y for PAIN, TAB 05/28/17 Discontinued Scripts Hydrocodone Bit/Acetaminophen (HYDROCODON-ACETAMINOPHEN 5-325) 1 Each Tablet, 1- 2 EACH PO Q4H Y for PAIN, #20 TAB 0 Refills Prov:DAHIANA ALMANZA DO 05/29/17 Follow up Referrals: SMALL OFFSET PRINTER - In 6 Weeks @ [facility] with Jared Chauhan Md Follow up with: Dr. Chauhan [phone] Follow up in: 6 wks PP or PO Discharge Diet: As Tolerates Discharge Activity: As Tolerates, No Heavy Lifting x 6 wks, No Heavy Lifting > 10lb, Pelvic Rest Copies to: JARED CHAUHAN MD, TRAVIS MD Sep 03, 2017 09:39
[2017-09-03] MEDS: GLYCERIN/WITCH HAZEL LEAF 1 PK TOP PRN (11:54)
[2017-09-03] MEDS: BENZOCAINE 20% 60 ML BTL TP PRN (11:54)
== END 2017-09-03 12:05 | disposition home or self-care (01) | DRG 775 ==
LOC: INTOOBSV 23:41 → OBSVTOIN 23:41 → OB 23:41 → UNDOADMIN 23:41 → OB 23:41
PROVIDERS: ADMIT Obstetrics & Gynecology; ATTEND Obstetrics & Gynecology
PROC: 10907ZC Drainage of Amniotic Fluid, Therapeutic from Products of Conception, Via Natural or Artificial Opening (ICD-10-PCS; 2017-09-01)
PROC: 10E0XZZ Delivery of Products of Conception, External Approach (ICD-10-PCS; principal; 2017-09-02)
PROC: 0HQ9XZZ Repair Perineum Skin, External Approach (ICD-10-PCS; 2017-09-02)
PROC: 4A1H74Z Monitoring of Products of Conception, Cardiac Electrical Activity, Via Natural or Artificial Opening (ICD-10-PCS; 2017-09-02)
PROC: 10H073Z Insertion of Monitoring Electrode into Products of Conception, Via Natural or Artificial Opening (ICD-10-PCS; 2017-09-02)
DX: O99.824 Streptococcus B carrier state complicating childbirth (principal); O90.81 Anemia of the puerperium; O69.81X0 Labor and delivery complicated by cord around neck, without compression, not applicable or unspecified; O70.0 First degree perineal laceration during delivery; O66.9 Obstructed labor, unspecified; R33.9 Retention of urine, unspecified; R11.2 Nausea with vomiting, unspecified; O76 Abnormality in fetal heart rate and rhythm complicating labor and delivery; Z37.0 Single live birth; Z88.8 Allergy status to other drugs, medicaments and biological substances; Z3A.39 39 weeks gestation of pregnancy
CPT/HCPCS: 36415; 81001; 82040; 82247; 82310; 82374; 82435; 82565; 82570; 82947; 83615; 84075; 84132; 84155; 84156; 84295; 84450; 84460; 84520; 84550; 85025; 85027; 86850; 86900; 86901; J2540; J2590; J3490; J7120